=== PATIENT | male | born 1970 | race Caucasian/White ===

== ENCOUNTER → 2017-07-13 | Outpatient (CLI) | payer BC ==
[2017-07-13 07:37] LABS: Basophils % (A) 1 %; Eosinophils # (A) 0.1 k/uL (0-0.7); Eosinophils % (A) 2 %; HCT 45.8 % (39.0-53.0); Lymphocytes # (A) 1.3 k/uL (1.0-4.8); Lymphocytes % (A) 29 %; MCH 29.5 pg (25.0-35.0); MCHC 32.7 g/dL (31.0-37.0); MCV 90.2 fL (80.0-100.0); Mean Platelet Volume 6.4; Monocytes # (A) 0.3 k/uL (0-1.0); Monocytes % (A) 7 %; Neutrophils # (A) 2.6 k/uL (1.3-7.7); Neutrophils % (A) 58 %; Platelet Count 231 k/uL (150-450); RBC 5.07 m/uL (4.30-5.90); RDW 12.6 % (11.5-15.5); WBC 4.4 k/uL (3.8-10.6)
[2017-07-13 09:34] LABS: ALT 23 U/L (21-72); AST 29 U/L (17-59); Albumin 4.1 g/dL (3.5-5.0); Alkaline Phosphatase 72 U/L (38-126); Anion Gap 7 mmol/L; Blood Urea Nitrogen 15 mg/dL (9-20); Calcium 9.4 mg/dL (8.4-10.2); Carbon Dioxide 30 mmol/L (22-30); Chloride 105 mmol/L (98-107); Cholesterol 144 mg/dL (<200); Glucose 96 mg/dL (74-99); HDL Cholesterol 52 mg/dL (40-60); LDL Cholesterol,Calculated 79 mg/dL (0-99); Potassium 4.9 mmol/L (3.5-5.1); Sodium 142 mmol/L (137-145); Total Bilirubin 0.9 mg/dL (0.2-1.3); Total Protein 6.9 g/dL (6.3-8.2); Triglycerides 65 mg/dL (<150)
[2017-07-13 09:48] LABS: T4, Free (Free Thyroxine) 1.01 ng/dL (0.78-2.19)
[2017-07-13 10:02] LABS: Prostate Specific Antigen 0.76 ng/mL (0.00-4.00)
== END | disposition home or self-care (01) ==
LOC: LABWHC1 07:07
PROVIDERS: ATTEND Family Medicine
DX: Z12.5 Encounter for screening for malignant neoplasm of prostate (principal); R03.0 Elevated blood-pressure reading, without diagnosis of hypertension
CPT/HCPCS: 36415; 80053; 80061; 84153; 84439; 84443; 85025

== ENCOUNTER 2019-02-27 08:52 | Day surgery (SDC) | payer BC ==
[2019-02-26 09:17] VITALS: BMI 22.4
--- NOTE | 2019-02-27 08:40 | P.GSHP ---
History of Present Illness H&P Date: 02/27/19 CHIEF COMPLAINT: Colon screen HISTORY OF PRESENT ILLNESS: The patient is a 48-year-old male who presents for colon screen. Lower endoscopy was offered for further evaluation and management. PAST MEDICAL HISTORY: Please see list. PAST SURGICAL HISTORY: Please see list. MEDICATIONS: Please see list. ALLERGIES: Please see list. SOCIAL HISTORY: No illicit drug use FAMILY HISTORY: No reports of Crohn disease or ulcerative colitis. REVIEW OF ORGAN SYSTEMS: CONSTITUTIONAL: No reports of fevers or chills. PHYSICAL EXAM: VITAL SIGNS: Stable GENERAL: Well-developed pleasant in no acute distress. HEENT: No scleral icterus. Extraocular movements grossly intact. Moist buccal mucosa. NECK: Supple without lymphadenopathy. CHEST: Unlabored respirations. Equal bilateral excursions. CARDIOVASCULAR: Regular rate and rhythm. Distal 2+ pulses. ABDOMEN: Soft, nontender, nondistended. MUSCULOSKELETAL: No clubbing, cyanosis, or edema. ASSESSMENT: 1. Colon screen. PLAN: 1. Recommend proceeding with a lower endoscopy Past Medical History Past Medical History: No Reported History History of Any Multi-Drug Resistant Organisms: None Reported Additional Past Surgical History / Comment(s): colonoscopy, wisdom teeth removed Additional Past Anesthesia/Blood Transfusion Reaction / Comment(s): slow to come around after wisdom teeth removed Smoking Status: Never smoker Medications and Allergies Home Medications Medication Instructions Recorded Confirmed Type No Known Home Medications 02/26/19 02/26/19 History Allergies Allergy/AdvReac Type Severity Reaction Status Date / Time No Known Allergies Allergy Verified 02/26/19 09:14
[~2019-02-27 08:52] MED LIST: LACTATED RINGERS 1,000 ML IV SCH
[2019-02-27 09:13] VITALS: RESP 18; TEMP 97.8
[2019-02-27] MEDS ORDERED: LACTATED RINGERS 1,000 ML IV ONE (09:13)
[2019-02-27] MEDS ORDERED: LIDOCAINE 1% 20 ML VIAL (10MG/ML) FOR IV START INTRADERMA ONE (09:13)
[2019-02-27] MEDS ORDERED: PROPOFOL 10 MG/ML 20 ML VIAL IV ONE (10:23)
[2019-02-27] MEDS ORDERED: LIDOCAINE 1% INJ 10MG/ML (20 ML MDV) ONE (10:23)
[2019-02-27] MEDS ORDERED: GLYCOPYRROLATE 0.2 MG/ML 2 ML VIAL ONE (10:23)
--- NOTE | 2019-02-27 10:45 | P.PCN ---
Date of Procedure: 02/27/19 Description of Procedure: PREOPERATIVE DIAGNOSIS: Colonoscopy screening POSTOPERATIVE DIAGNOSIS: Colonoscopy screening. OPERATION: Colonoscopy to the ileocecal valve and appendiceal orifice. SURGEON: Leah Casiano MD. ANESTHESIA: MAC. INDICATIONS: The patient is a 48-year-old male who presents for colonoscopy screening. Benefits and risks were described and informed consent was obtained. DESCRIPTION OF PROCEDURE: The patient had undergone Suprep. He had been brought into the operating room a nd laid in the left lateral decubitus position. After adequate intravenous sedation, the rectum was examined with 2% lidocaine jelly. No external hemorrhoids were encountered. The rectal tone was within normal limits. No lesions were palpated in the rectal vault. The prostatic fossa was unremarkable. An Olympus colonoscope was advanced until the ileocecal valve and appendiceal orifice were clearly viewed. The prep was excellent with clear visualization of the mucosal folds. The scope was removed with visualization of each mucosal fold. No scattered diverticulosis was encountered. No colonic polyps were found. No evidence of focal colitis was found. Retroflexion of the scope demonstrated grade no internal hemorrhoids. The colon was desufflated. The patient had tolerated the procedure well. Withdrawal time was over 6 minutes. FINDINGS: Aronchick preparation quality scale 1 (1-5) No internal hemorrhoids No external prolapsed hemorrhoids. No arteriovenous malformations. No adenomatous polyps. No focal colitis. No diverticulosis RECOMMENDATIONS: Lower endoscopy in 10 years per screening guidelines, 2028 Plan - Discharge Summary Discharge Rx Participant: No New Discharge Prescriptions: No Action No Known Home Medications Discharge Medication List No Known Home Medications 02/26/19 [History] Follow up Appointment(s)/Referral(s): Leah Casiano MD [STAFF PHYSICIAN] - As Needed Patient Instructions/Handouts: *Surgery [facility] - (Anesthesia) Endoscopy Discharge Instructions Activity/Diet/Wound Care/Special Instructions: Repeat colonoscopy 10 years, 2028 Discharge Disposition: HOME SELF-CARE
[2019-02-27 11:00] VITALS: BP 99/58; PULSE 55
== END 2019-02-27 11:20 | disposition home or self-care (01) ==
LOC: ORWHC2ENDO 08:52
PROVIDERS: ATTEND Surgery Plastic and Reconstructive Surgery
DX: Z12.11 Encounter for screening for malignant neoplasm of colon (principal)
CPT/HCPCS: J2001; J2704; G0121

== ENCOUNTER → 2023-04-12 | Outpatient (CLI) | payer BC ==
--- NOTE | 2023-04-12 11:21 | CA ---
Exercise Stress Test Report Name: Rich Torres Exam Date: 04/12/2023 09:40 Exam Location: [facility] Stress Ht (in): 76 Wt (lb): 187 BSA: 2.15 Ordering Phys: Preet Morales MD Referring Phys: PREET MORALES,, Technologist: Cruzito Potts Age: 52 Gender: M : 1970 Procedure CPT: Indications: R94.31 ABNORMAL EKG ICD-10 Codes: Patient History: Medications: NONE Meds past 24 hrs: Pretest Chest Pain: STRESS TEST Paramjit Protocol Exercise Duration (min:sec): 10:[address] Depressions (mm): Angina Score: Valdes Score: Resting HR (bpm): 98 Peak HR (bpm): 158 Resting BP (mmHg): 121 / 72 Peak BP (mmHg): 177 / 75 MPHR: 166 Target HR: 141 % MPHR: 95 METS: 12.1 Total Dose: Peak Dose: Atropine: Double Product: 44701 BP Response: Stress Termination: Target HR Stress Symptoms: NECK PAIN Stress Summary: ECG ANALYSIS Resting ECG: Normal sinus rhythm, normal East, heart rate 98 bpm Stress ECG: Upsloping ST depressions with peak stress. This is not diagnostic for ischemia. No ectopic beats or arrhythmias CONCLUSIONS Good excess tolerance for patient's age achieving 10.1 metastases Normal resting ECG Nonischemic ECG response to treadmill exercise Overall normal treadmill stress test Dr Jonah Carballo (Electronically Signed) Final Date: 12 April 2023 11:20
== END | disposition home or self-care (01) ==
LOC: RADNMMAIN 08:06
PROVIDERS: ATTEND Family Medicine
DX: R94.31 Abnormal electrocardiogram [ECG] [EKG] (principal)
CPT/HCPCS: 93017

== ENCOUNTER → 2024-04-29 | Outpatient (CLI) | payer BC ==
--- NOTE | 2024-04-29 17:47 | US ---
EXAMINATION TYPE: US thyroid st tissue head/neck DATE OF EXAM: 04/29/2024 COMPARISON: NONE CLINICAL INDICATION: Male, 53 years old with history of R22.1 Localized swelling mass lump neck; left parotid gland palp x 6+ years TECHNIQUE: Grayscale and color Doppler imaging of patients area of concern FINDINGS: patients palpable area corresponds to a 0.7x0.3x0.7cm hypoechoic area inferior to the left ear adjace nt to the parotid gland IMPRESSION: Hypoechoic area just inferior to the parotid gland of unknown etiology possibly parotid gland island of tissue. Consider further evaluation with cross-sectional imaging such as MRI. [facility], , 04/29/2024 5:45 PM
== END | disposition home or self-care (01) ==
LOC: RADUSWWP 16:31
PROVIDERS: ATTEND Family Medicine
DX: R22.1 Localized swelling, mass and lump, neck (principal)
CPT/HCPCS: 76536

== ENCOUNTER → 2024-06-06 | Outpatient (CLI) | payer BC ==
--- NOTE | 2024-06-06 09:55 | MR ---
EXAMINATION TYPE: MR neck wo/w con DATE OF EXAM: 06/06/2024 8:34 AM COMPARISON: Ultrasound 04/29/2024. CLINICAL INDICATION: Male, 53 years old with history of R22.1 SWELLING, MASS, LUMP NECK; PHH, abnorma l ultrasound, palpable lump below left ear with marker placed TECHNIQUE: Multi planar, multi sequence imaging was performed of the neck soft tissues. IV Contrast: 8 mL Gadobutrol FINDINGS: In area marked by palpable marker correlates with what is thought to be a small lymph node measuring 6 mm in short axis. Adjacent 6 mm suspected intraglandular lymph node in the superficial i nferior parotid gland. Several nonenlarged anterior chain lymph nodes are identified. There is no ev idence to suggest a soft tissue mass. The glottis appears unremarkable. The cervical vertebral bodies have preserved heights and alignment. Multilevel disc desiccation and anterior osteophytosis are present. The cervical spinal cord demonstrates a normal appearance. IMPRESSION: Soft tissue irregularity seen on ultrasound on 04/29/2024 is thought represent an intraglandular lymp h node within the parotid gland or a lymph node immediately adjacent to the parotid gland. Consider s hort-term follow-up ultrasound in 3 months to ensure stability. No suspicious masses or enlarged lymp h nodes. [facility], , 06/06/2024 9:53 AM
== END | disposition home or self-care (01) ==
LOC: RADMRIMAIN 07:25
PROVIDERS: ATTEND Family Medicine
DX: R22.1 Localized swelling, mass and lump, neck (principal)
CPT/HCPCS: 70543